=== PATIENT | female | born 1990 | race African-American/Black ===

== ENCOUNTER 2020-09-10 12:07 | Emergency (ER) | payer OTHER ==
[2020-09-10 12:15] VITALS: TEMP 97.9
[2020-09-10] MEDS ORDERED: ONDANSETRON 4 MG/2 ML VIAL IVP STA (12:44)
[2020-09-10] MEDS ORDERED: FAMOTIDINE 20 MG/2 ML VIAL IV STA (12:44)
[2020-09-10] MEDS ORDERED: KETOROLAC 15 MG/ML 1 ML VIAL IVP STA (12:44)
[2020-09-10 13:07] LABS: Basophils % (A) 0 %; Eosinophils # (A) 0.1 k/uL (0-0.7); Eosinophils % (A) 1 %; HCT 41.6 % (34.0-46.0); HGB 14.4 gm/dL (11.4-16.0); Lymphocytes % (A) 14 %; MCH 31.9 pg (25.0-35.0); MCHC 34.6 g/dL (31.0-37.0); MCV 92.2 fL (80.0-100.0); Mean Platelet Volume 6.6; Monocytes # (A) 0.3 k/uL (0-1.0); Monocytes % (A) 3 %; Neutrophils # (A) 5.9 k/uL (1.3-7.7); Neutrophils % (A) 81 %; Platelet Count 337 k/uL (150-450); RBC 4.51 m/uL (3.80-5.40); RDW 11.5 % (11.5-15.5); WBC 7.3 k/uL (3.8-10.6)
[2020-09-10 13:22] LABS: ALT 14 U/L (4-34); AST 26 U/L (14-36); African American GFR (CKD) >90 (>60 ml/min/1.73 sqM); Albumin 4.1 g/dL (3.5-5.0); Alkaline Phosphatase 65 U/L (38-126); Anion Gap 4 mmol/L; Blood Urea Nitrogen 12 mg/dL (7-17); Calcium 9.3 mg/dL (8.4-10.2); Carbon Dioxide 27 mmol/L (22-30); Chloride 110 mmol/L (98-107); Glucose 95 mg/dL (74-99); Lipase 52 U/L (23-300); Non-African American GFR(CKD) >90 (>60 ml/min/1.73 sqM); Sodium 141 mmol/L (137-145); Total Bilirubin 0.7 mg/dL (0.2-1.3); Total Protein 6.9 g/dL (6.3-8.2)
--- NOTE | 2020-09-10 13:22 | XR ---
EXAMINATION TYPE: XR chest 2V DATE OF EXAM: 09/10/2020 COMPARISON: NONE HISTORY: Chest pain TECHNIQUE: Frontal and lateral views of the chest are obtained. FINDINGS: There is no focal air space opacity, pleural effusion, or pneumothorax seen. The cardiac silhouette size is within normal limits. There are overlying leads. Patient is rotated. The osseous structures are intact. IMPRESSION: No acute cardiopulmonary process.
--- NOTE | 2020-09-10 13:41 | ED ---
Chest Pain HPI - General Chief Complaint: Chest Pain Stated Complaint: chest pain Time Seen by Provider: 09/10/20 12:33 Source: patient Mode of arrival: ambulatory Limitations: no limitations - History of Present Illness Initial Comments: Is a 22-year-old female who presents emergency department for chest pain and epigastric pain. The patient states that it's been going on for approximate 5 days. She states the chest pain is sharp and constant and unrelieved and. She states that it seems to be made worse when she drinks or eats something. She states that she gets intermittent episodes of cramping epigastric abdominal pain as well. She has some associated nausea with this however no vomiting. No diarrhea. No fevers or chills. She denies any trauma to the area. She states that the chest pain is made worse with breathing at times. She denies a history of PE or DVT. No history of control use. No lower extremity pain or swelling. No recent travel or surgeries or trauma. The patient came in emergency department for further evaluation of her symptoms. - Related Data Home Medications Medication Instructions Recorded Confirmed Albuterol Sulfate [Proair Hfa] 2 puff INHALATION RT-Q4H PRN 09/10/20 09/10/20 Levothyroxine Sodium [Synthroid] 25 mcg PO DAILY 09/10/20 09/10/20 Previous Rx's Medication Instructions Recorded HYDROcodone/APAP 5-325MG [[place] 1 tab PO Q6HR PRN 3 Days #8 tab 09/10/20 5-325] Ondansetron Odt [Zofran Odt] 4 mg PO Q8HR PRN #10 tab 09/10/20 Allergies Allergy/AdvReac Type Severity Reaction Status Date / Time No Known Allergies Allergy Verified 09/10/20 14:38 Review of Systems ROS Statement: Those systems with pertinent positive or pertinent negative responses have been documented in the HPI. ROS Other: All systems not noted in ROS Statement are negative. EKG Findings - EKG Comments: EKG Findings:: EKG showing normal sinus rhythm with a rate 75. There is no abnormal ST segment changes or T-wave inversions. QTC is 410. Other intervals normal. No ectopy. Past Medical History Past Medical History: No Reported History History of Any Multi-Drug Resistant Organisms: MRSA Date of last positivie culture/infection: 07/17/18 MDRO Source:: Chest Past Surgical History: No Surgical Hx Reported Additional Past Surgical History / Comment(s): rt eye surgery Past Psychological History: Anxiety Smoking Status: Never smoker Past Alcohol Use History: None Reported Past Drug Use History: Marijuana General Exam - General Exam Comments Initial Comments: Constitutional: Awake alert Appears comfortable Head: Normocephalic atraumatic Eyes: no conjunctival injection No scleral icterus EOMI Neck: No JVD Supple Heart: Regular rate rhythm normal S1-S2 no murmurs Lungs: Clear to auscultation bilaterally No wheezing No rales Abdomen: Soft nondistended epigastric abdominal pain without rebound or guarding. No right upper quadrant pain. Extremities: Non edematous DP pulses intact Radial pulses intact Neuro: A&Ox3 No focal neurologic deficits Psych: Appropriate mood and affect Limitations: no limitations Course Vital Signs 09/10/20 09/10/20 09/10/20 12:12 13:15 14:15 Temperature 97.9 F Pulse Rate 82 67 73 Respiratory 20 18 18 Rate Blood Pressure 111/74 116/59 93/56 O2 Sat by Pulse 99 100 100 Oximetry 09/10/20 09/10/20 09/10/20 15:00 16:00 16:51 Temperature 97.9 F Pulse Rate 73 61 Respiratory 18 18 18 Rate Blood Pressure 93/56 102/70 O2 Sat by Pulse 100 100 100 Oximetry Chest Pain MDM - MDM This is a 30-year-old female presents emergency department for chest pain and epigastric abdominal pain. Patient was initially given Toradol, Zofran, Pepcid with improvement in her symptoms however not complete resolution. Labwork was obtained and unremarkable. Troponin negative. EKG was normal. Chest chest x- ray was normal. Due to the patient's persistent symptoms and ultrasound was performed and she was given Maalox presented she did have great improvement in her symptoms after this however ultrasound the abdomen did show multiple gallstones. She did have a normal-appearing aorta as well. No evidence for cholecystitis. The patient was feeling much improved and thus I'm aside send her home with follow-up with Dr. Martines for general surgery for possible elective cholecystectomy in the future. She was given [place] to use as needed for pain. Told that she can return emergency Department if she had any worsening or changing symptoms including fevers, chills, worsening abdominal pain or other inserting symptoms. All questions were answered. Disposition Clinical Impression: Gallstones Disposition: HOME SELF-CARE Condition: Stable Instructions (If sedation given, give patient instructions): Gallstones (ED) Prescriptions: HYDROcodone/APAP 5-325MG [[place] 5-325] 1 tab PO Q6HR PRN 3 Days #8 tab PRN Reason: Pain Ondansetron Odt [Zofran Odt] 4 mg PO Q8HR PRN #10 tab PRN Reason: Nausea Is patient prescribed a controlled substance at d/c from ED?: Yes When asked, does pt state using other controlled substances?: No If prescribed controlled substance>3 days was MAPS reviewed?: Prescribed <3 Days If opioid is for acute pain is fill amount 7 days or less?: Yes If Rx opioid, was Start Talking consent form obtained?: Yes Referrals: Armani Lino MD [Primary Care Provider] - 1-2 days Sharon Del Castillo MD [STAFF PHYSICIAN] - 1-2 days
[2020-09-10] MEDS ORDERED: MAG HYDROX/AL HYDROX/SIMETH 30 ML, HYOSCYAMINE ELIXIR 10 ML, LIDOCAINE VISCOUS 2% 10 ML PO STA ×3 (14:35)
[2020-09-10 15:13] VITALS: RESP 18
--- NOTE | 2020-09-10 16:07 | US ---
EXAMINATION TYPE: US abdomen limited DATE OF EXAM: 09/10/2020 COMPARISON: NONE CLINICAL HISTORY: RUQ abdominal pain/epigastric pain. RUQ pain look at aorta per er doctor. EXAM MEASUREMENTS: Liver Length: 14.5 cm Gallbladder Wall: .3 cm CBD: .4 cm Right Kidney: 9.6 x 3.9 x 4.0 cm Aorta: WNL Pancreas: Tail obscured by overlying bowel gas Liver: wnl Gallbladder: Multiple gallstones visualized. Evidence for sonographic Otto's sign: no CBD: wnl Right Kidney: wnl IMPRESSION: Cholelithiasis without sonographic evidence of acute abnormality.
[2020-09-10 16:51] VITALS: BP 102/70; PULSE 61
== END 2020-09-10 16:51 | disposition home or self-care (01) ==
LOC: EC 12:07
DX: K80.20 Calculus of gallbladder without cholecystitis without obstruction (principal); F12.90 Cannabis use, unspecified, uncomplicated
CPT/HCPCS: 36415; 93005; 80053; 83690; 84484; 85025; 81025; 71046; 76705; 99285; 96374; 96375 ×2; J2405; J1885